=== PATIENT | male | born 1960 | race Caucasian/White ===

== ENCOUNTER → 2018-12-01 | Outpatient (CLI) | payer MEDICARE, OTHER ==
[~2018-12-01] MED LIST: PREDNISONE20 MG PO
== END ==
LOC: COL.RAD 08:30
DX: R06.02 Shortness of breath (principal); R07.89 Other chest pain

== ENCOUNTER → 2020-09-08 | Outpatient (CLI) | payer MEDICARE, OTHER | LOC: COL.PUL 07:29 | DX: R06.00 Dyspnea, unspecified (principal); R06.02 Shortness of breath ==

== ENCOUNTER → 2020-09-22 | Outpatient (REF) | LOC: COL.CARD 11:48 | DX: R00.1 Bradycardia, unspecified (principal) ==